=== PATIENT | female | born 1980 | race Caucasian/White ===

== ENCOUNTER 2018-11-25 12:29 | Emergency (ER) | payer OTHER ==
[~2018-11-25] VITALS: Ht 165.1 cm; Wt 59.0 kg
== END 2018-11-25 14:38 | disposition home or self-care (01) ==
LOC: ER 12:29
DX: R07.89 Other chest pain (principal)

== ENCOUNTER → 2022-01-07 | Emergency (ER) | payer OTHER ==
[~2022-01-07] VITALS: Ht 170.2 cm; Wt 54.4 kg
== END | disposition home or self-care (01) ==
LOC: ER 01:46
DX: U07.1 COVID-19 (principal); L02.91 Cutaneous abscess, unspecified

== ENCOUNTER 2022-12-12 20:11 | Emergency (ER) | payer OTHER ==
[~2022-12-12] VITALS: Ht 165.1 cm; Wt 58.5 kg
[2022-12-12] MEDS ORDERED: SYNTHROID50 MCG PO (20:44)
== END 2022-12-13 00:13 | disposition home or self-care (01) ==
LOC: ER 20:11
DX: B34.9 Viral infection, unspecified (principal); Z20.822 Contact with and (suspected) exposure to COVID-19